=== PATIENT | male | born 1945 | race Caucasian/White ===

== ENCOUNTER 2017-04-14 17:39 | Emergency (ER) | payer BC ==
[2017-04-14] MEDS: SOD CHLORIDE 0.9% 1,000 ML IV (19:05)
[2017-04-14] MEDS: METOCLOPRAMIDE 10 MG INJ IV (19:06)
[2017-04-14] MEDS: DIPHENHYDRAMINE 50 MG INJ IV (19:06)
[2017-04-14] MEDS: KETOROLAC 30 MG INJ IV (19:06)
== END 2017-04-14 20:47 | disposition home or self-care (01) ==
LOC: FTE 17:39
DX: R51 Headache (principal); I10 Essential (primary) hypertension
CPT/HCPCS: 96374; 96375; 99284-25; J1200

== ENCOUNTER 2017-04-26 06:44 | Emergency (ER) | payer BC ==
[2017-04-26] MEDS: BELLADONNA/PHENOBARBITAL TAB PO (07:20)
[2017-04-26] MEDS: LIDOCAINE/MYLANTA 40 ML BTL PO (07:20)
[2017-04-26 07:22] LABS: ADD MAN DIFF? NO
[2017-04-26 07:24] LABS: WHITE BLOOD COUNT 7.4 10^3/ul (4.8-10.8)
[2017-04-26 07:24] LABS: BASOPHIL # 0.1 10^3/ul (0.0-0.1); BASOPHILS % 0.8 % (0.0-2.0); EOSINOPHILS # 0.1 10^3/ul (0.0-0.5); EOSINOPHILS % 0.9 % (0.0-7.0); HEMATOCRIT 43.1 % (42.0-52.0); LYMPHOCYTES # 2.3 10^3/ul (0.8-2.9); LYMPHOCYTES % 31.5 % (15.0-51.0); MEAN CORPUSCULAR HEMOGLOBIN 31.1 pg (29.0-33.0); MEAN CORPUSCULAR HGB CONC 34.8 g/dl (32.0-37.0); MEAN CORPUSCULAR VOLUME 89.4 fl (82.0-101.0); MEAN PLATELET VOLUME 11.2 fl (7.4-10.4); MONOCYTE # 0.8 10^3/ul (0.3-0.9); MONOCYTES % 11.1 % (0.0-11.0); NEUTROPHIL # 4.1 10^3/ul (1.6-7.5); NEUTROPHILS % 55.6 % (39.0-77.0); PLATELET COUNT 238 10^3/UL (140-415); RED BLOOD COUNT 4.82 10^6/ul (4.70-6.10); RED CELL DISTRIBUTION WIDTH 11.9 % (11.5-14.5)
[2017-04-26] MEDS: hydrALAzine 20 MG INJ IV (07:27)
[2017-04-26] MEDS: SOD CHLORIDE 0.9% 1,000 ML IV (07:27)
[2017-04-26 07:42] LABS: ALANINE AMINOTRANSFERASE 31 IU/L (13-69); ALBUMIN 4.3 g/dl (3.3-4.9); ALBUMIN/GLOBULIN RATIO 1.22; ALKALINE PHOSPHATASE 85 IU/L (42-121); ANION GAP 11 (8-16); ASPARTATE AMINO TRANSFERASE 32 IU/L (15-46); BILIRUBIN,INDIRECT 0.5 mg/dl (0-1.1); BILIRUBIN,TOTAL 0.5 mg/dl (0.2-1.3); BLOOD UREA NITROGEN 12 mg/dl (7-20); CALCIUM 9.2 mg/dl (8.4-10.2); CARBON DIOXIDE 29 mmol/L (21-31); CHLORIDE 101 mmol/L (97-110); CREATINE KINASE 211 IU/L (23-200); CREATININE 0.96 mg/dl (0.61-1.24); GLUCOSE 103 mg/dl (70-220); POTASSIUM 4.3 mmol/L (3.5-5.1); SODIUM 137 mmol/L (135-144); TOTAL PROTEIN 7.8 g/dl (6.1-8.1)
[2017-04-26 07:51] LABS: INR 0.93; PROTIME 12.6 Sec (11.9-14.9)
[2017-04-26 07:54] LABS: B-TYPE NATRIURETIC PEPTIDE 153 PG/ML (0-125)
[2017-04-26 07:55] LABS: CK INDEX 0.5; CK-MB 0.97 ng/ml (0.0-2.4); TROPONIN-I < 0.012 ng/ml (0.00-0.12)
== END 2017-04-26 09:58 | disposition home or self-care (01) ==
LOC: E/R 06:44
DX: I16.9 Hypertensive crisis, unspecified (principal); I10 Essential (primary) hypertension; R07.89 Other chest pain
CPT/HCPCS: 71045; 80053; 82550; 82553; 83880; 84484; 85025; 85610; 85730; 93005; 96374; 99285-25

== ENCOUNTER 2017-10-11 05:45 | Day surgery (SDC) | payer BC ==
[2017-10-11] MEDS ORDERED: PROPOFOL 40 ML (10:03)
[2017-10-11] MEDS ORDERED: LIDOCAINE 100 MG SYRINGE (10:03)
== END 2017-10-11 13:21 | disposition home or self-care (01) ==
LOC: GIL 05:45
DX: Z12.11 Encounter for screening for malignant neoplasm of colon (principal); D12.5 Benign neoplasm of sigmoid colon; K64.8 Other hemorrhoids; I10 Essential (primary) hypertension
CPT/HCPCS: 45380

== ENCOUNTER 2018-03-29 06:06 | Emergency (ER) | payer SELFPAY, BC | END 2018-03-29 06:53 | disposition home or self-care (01) | LOC: FTE 06:06 | DX: Z00.00 Encounter for general adult medical examination without abnormal findings (principal); I10 Essential (primary) hypertension | CPT/HCPCS: 99282 ==

== ENCOUNTER → 2018-03-29 | Outpatient (CLI) | payer BC ==
[2018-03-29 08:09] LABS: ALANINE AMINOTRANSFERASE 22 IU/L (13-69); ALBUMIN 4.6 g/dl (3.3-4.9); ALBUMIN/GLOBULIN RATIO 1.43; ALKALINE PHOSPHATASE 73 IU/L (42-121); ANION GAP 8 (5-13); ASPARTATE AMINO TRANSFERASE 30 IU/L (15-46); BILIRUBIN,INDIRECT 0.8 mg/dl (0-1.1); BILIRUBIN,TOTAL 0.8 mg/dl (0.2-1.3); BLOOD UREA NITROGEN 18 mg/dl (7-20); CALCIUM 9.4 mg/dl (8.4-10.2); CARBON DIOXIDE 32 mmol/L (21-31); CHLORIDE 92 mmol/L (97-110); CREATININE 0.99 mg/dl (0.61-1.24); Estimated GFR > 60 mL/min (>60); GLUCOSE 108 mg/dl (70-220); POTASSIUM 4.6 mmol/L (3.5-5.1); SODIUM 132 mmol/L (135-144); TOTAL PROTEIN 7.8 g/dl (6.1-8.1)
[2018-03-31 15:32] LABS: CREATININE, RANDOM URINE 108 mg/dL (20-320); MICROALBUMIN 0.4 mg/dL; MICROALBUMIN/CREATININE RATIO 4 (<30)
== END | disposition home or self-care (01) ==
LOC: LAB 06:52
DX: I10 Essential (primary) hypertension (principal)
CPT/HCPCS: 80053; 82043